=== PATIENT | female | born 1970 | race Caucasian/White ===

== ENCOUNTER 2016-12-12 00:46 | Emergency (ER) | payer BC ==
--- NOTE | 2016-12-12 01:10 | EDM.PDOC ---
ED HPI GENERAL MEDICAL PROBLEM - General Stated Complaint: KNEE PAIN Time Seen by Provider: 12/12/16 01:08 - History of Present Illness INITIAL COMMENTS - FREE TEXT/NARRATIVE: HISTORY AND PHYSICAL: History of present illness: Patient 45-year-old female with history of degenerative joint disease and diabetes she has chronic knee pain and was recently seen in orthopedic clinic and had bilateral cortisone injections she comes in now with pain of her knees bilaterally she denies fever chills nausea vomiting erythema. She'll be traveling back to [place] was concerned about pain medication Review of systems: As per history of present illness and below otherwise all systems reviewed and negative. Past medical history: As per history of present illness and as reviewed below otherwise noncontributory. Surgical history: As per history of present illness and as reviewed below otherwise noncontributory. Social history: No reported history of drug or alcohol abuse. Family history: As per history of present illness and as reviewed below otherwise noncontributory. Physical exam: HEENT: Atraumatic, normocephalic, pupils reactive, negative for conjunctival pallor or scleral icterus, mucous membranes moist, throat clear, neck supple, nontender, trachea midline. Lungs: Clear to auscultation, breath sounds equal bilaterally, chest nontender. Heart: S1S2, regular, negative for clicks, rubs, or JVD. Abdomen: Soft, nondistended, nontender. Negative for masses or hepatosplenomegaly. Negative for costovertebral tenderness. Pelvis: Stable nontender. Genitourinary: Deferred. Rectal: Deferred. Extremities: Both knees are slightly limited range of motion secondary to pain is now crepitation or point tenderness is no erythema or warmth Neuro: Awake, alert, oriented. Cranial nerves II through XII unremarkable. Cerebellum unremarkable. Motor and sensory unremarkable throughout. Exam nonfocal. Diagnostics: Deferred Therapeutics: None Impression: #1 bilateral knee pain secondary to degenerative joint disease Definitive disposition and diagnosis as appropriate pending reevaluation and review of above. - Related Data Allergies Allergy/AdvReac Type Severity Reaction Status Date / Time Penicillins Allergy Severe eye Verified 01/14/16 01:46 swelling Home Meds: Home Meds Levothyroxine [Synthroid] 50 mcg PO ACBREAKFAST 11/21/14 [History] Losartan/Hydrochlorothiazide [Losartan-HCTZ 100-25 MG] 1 each PO DAILY 11/21/14 [History] Pravastatin [Pravachol] 80 mg PO BEDTIME 11/21/14 [History] Cyanocobalamin (Vitamin B-12) [Vitamin B-12] 1 injection IM ASDIRECTED 12/18/14 [History] amLODIPine [Norvasc] 5 mg PO ACBREAKFAST 12/18/14 [History] metFORMIN HCl [Metformin HCl] 1 tab PO BID 01/13/15 [History] Past Medical History Cardiovascular History: Reports: High Cholesterol, Hypertension, [place] Other Cardiovascular History: Recent stress test, report in surgical packet Other Respiratory History: 20 yr history of smoking Other Genitourinary History: "potassium in urine" Other OB/BYN History: tubal ligation Neurological History: Reports: Migraines Psychiatric History: Reports: Anxiety Endocrine/Metabolic History: Reports: Diabetes, Type II Other Dermatologic History: Dry skin, from [place] feeling changes up here, "rashes from time to time" - Infectious Disease History Infectious Disease History: Reports: Chicken Pox - Past Surgical History GI Surgical History: Reports: Appendectomy, Cholecystectomy Other Musculoskeletal Surgeries/Procedures:: hx: Foot surgery Social & Family History - Family History Family Medical History: Noncontributory - Tobacco Use Smoking Status *Q: Former Smoker Years of Tobacco use: 20 Packs/Tins Daily: 4 Used Tobacco, but Quit: Yes Month Tobacco Last Used: February Second Hand Smoke Exposure: No - Caffeine Use Caffeine Use: Reports: Coffee - Recreational Drug Use Recreational Drug Use: No Drug Use in Last 12 Months: No ED ROS GENERAL - Review of Systems Review Of Systems: ROS reveals no pertinent complaints other than HPI. ED EXAM, GENERAL - Physical Exam Exam: See Below (See dictation) Departure - Departure Time of Disposition: 01:10 Disposition: Home, Self-Care 01 Condition: Good Clinical Impression: Degenerative joint disease, Chronic knee pain - Discharge Information Referrals: Dax Antunez MD [Primary Care Provider] - Additional Instructions: The following information is given to patients seen in the emergency department who are being discharged to home. This information is to outline your options for follow-up care. We provide all patients seen in our emergency department with a follow-up referral. The need for follow-up, as well as the timing and circumstances, are variable depending upon the specifics of your emergency department visit. If you don't have a primary care physician on staff, we will provide you with a referral. We always advise you to contact your personal physician following an emergency department visit to inform them of the circumstance of the visit and for follow-up with them and/or the need for any referrals to a consulting specialist. The emergency department will also refer you to a specialist when appropriate. This referral assures that you have the opportunity for followup care with a specialist. All of these measure are taken in an effort to provide you with optimal care, which includes your followup. Under all circumstances we always encourage you to contact your private physician who remains a resource for coordinating your care. When calling for followup care, please make the office aware that this follow-up is from your recent emergency room visit. If for any reason you are refused follow-up, please contact the emergency department at and asked to speak to the emergency department charge nurse. Tramadol as prescribed follow-up primary medical doctor/orthopedics 24-48 hours return as needed as discussed
[2016-12-12 01:35] VITALS: BP 131/71
== END 2016-12-12 01:43 | disposition home or self-care (01) ==
LOC: MW.ED 00:46
DX: M17.0 Bilateral primary osteoarthritis of knee (principal); E11.9 Type 2 diabetes mellitus without complications; I10 Essential (primary) hypertension; Z88.0 Allergy status to penicillin; Z79.84 Long term (current) use of oral hypoglycemic drugs; Z79.899 Other long term (current) drug therapy; Z87.891 Personal history of nicotine dependence
CPT/HCPCS: 99282; 99283

== ENCOUNTER 2017-01-09 14:30 | Emergency (ER) | payer BC ==
[2017-01-09] MEDS ORDERED: Ketorolac 60 MG/2 ML SDV IM ONE (14:39)
--- NOTE | 2017-01-09 14:40 | EDM.PDOC ---
ED HPI GENERAL MEDICAL PROBLEM - General Chief Complaint: Back Pain or Injury Stated Complaint: BACK PAIN Time Seen by Provider: 01/09/17 14:39 Source of Information: Reports: Patient - History of Present Illness INITIAL COMMENTS - FREE TEXT/NARRATIVE: HISTORY AND PHYSICAL: History of present illness: [Patient with history of low back pain presents with low back pain rates 8 out of 10 nonradiating radiculopathy or claudication no bowel or urine symptoms no footdrop rattle saddle anesthesia No fever nausea vomiting chills sweats no chest pain shortness breath headache dizziness palpitation no bowel or urine symptoms Patient repositions to get on and off the exam table in a couple of times, but moving fairly well ] Previous history of hysterectomy Review of systems: As per history of present illness and below otherwise all systems reviewed and negative. Past medical history: As per history of present illness and as reviewed below otherwise noncontributory. Surgical history: As per history of present illness and as reviewed below otherwise noncontributory. Social history: No reported history of drug or alcohol abuse. Family history: As per history of present illness and as reviewed below otherwise noncontributory. Physical exam: HEENT: Atraumatic, normocephalic, pupils reactive, negative for conjunctival pallor or scleral icterus, mucous membranes moist, throat clear, neck supple, nontender, trachea midline. Lungs: Clear to auscultation, breath sounds equal bilaterally, chest nontender. Heart: S1S2, regular, negative for clicks, rubs, or JVD. Abdomen: Soft, nondistended, nontender. Negative for masses or hepatosplenomegaly. Negative for costovertebral tenderness. Pelvis: Stable nontender. Genitourinary: Deferred. Rectal: Deferred. Extremities: Atraumatic, negative for cords or calf pain. Neurovascular unremarkable. Leg raise 30 without radiculopathy Neuro: Awake, alert, oriented. Cranial nerves II through XII unremarkable. Cerebellum unremarkable. Motor and sensory unremarkable throughout. Exam nonfocal. Footdrop or saddle anesthesia Musculoskeletal paraspinous muscle spasm left greater than right lumbar Diagnostics: []Lumbar spine UA Therapeutics: []Toradol 60 IM Cataflam Flexeril Impression: []Low back pain Definitive disposition and diagnosis as appropriate pending reevaluation and review of above. back Pain Score (Numeric/FACES): 10 - Related Data Allergies Allergy/AdvReac Type Severity Reaction Status Date / Time Penicillins Allergy Severe eye Verified 01/09/17 14:42 swelling Home Meds: Home Meds Levothyroxine [Synthroid] 50 mcg PO ACBREAKFAST 11/21/14 [History] Losartan/Hydrochlorothiazide [Losartan-HCTZ 100-25 MG] 1 each PO DAILY 11/21/14 [History] Pravastatin [Pravachol] 80 mg PO BEDTIME 11/21/14 [History] Cyanocobalamin (Vitamin B-12) [Vitamin B-12] 1 injection IM ASDIRECTED 12/18/14 [History] amLODIPine [Norvasc] 5 mg PO ACBREAKFAST 12/18/14 [History] metFORMIN HCl [Metformin HCl] 1 tab PO BID 01/13/15 [History] Past Medical History Cardiovascular History: Reports: High Cholesterol, Hypertension, [place] Other Cardiovascular History: Recent stress test, report in surgical packet Other Respiratory History: 20 yr history of smoking Other Genitourinary History: "potassium in urine" Other OB/BYN History: tubal ligation Neurological History: Reports: Migraines Psychiatric History: Reports: Anxiety Endocrine/Metabolic History: Reports: Diabetes, Type II Other Dermatologic History: Dry skin, from [place] feeling changes up here, "rashes from time to time" - Infectious Disease History Infectious Disease History: Reports: Chicken Pox - Past Surgical History GI Surgical History: Reports: Appendectomy, Cholecystectomy Other Musculoskeletal Surgeries/Procedures:: hx: Foot surgery Social & Family History - Family History Family Medical History: Noncontributory - Tobacco Use Smoking Status *Q: Current Some Day Smoker Years of Tobacco use: 0 Packs/Tins Daily: 0.3 Used Tobacco, but Quit: Yes Month Tobacco Last Used: February Second Hand Smoke Exposure: No - Caffeine Use Caffeine Use: Reports: Coffee - Recreational Drug Use Recreational Drug Use: No Drug Use in Last 12 Months: No ED ROS GENERAL - Review of Systems Review Of Systems: ROS reveals no pertinent complaints other than HPI. ED EXAM, GENERAL - Physical Exam Exam: See Below Course - Vital Signs Last Recorded V/S: Last Vital Signs Temp 98.0 F 01/09/17 14:45 Pulse 81 01/09/17 14:45 Resp 18 01/09/17 14:45 BP 146/84 H 01/09/17 14:45 Pulse Ox 98 01/09/17 14:45 - Orders/Labs/Meds Orders: Active Orders 24 hr Category Date Time Status Lumbar Spine 2 or 3V [CR] Stat Exams 01/09/17 14:37 Taken Labs: Laboratory Tests 01/09/17 Range/Units 15:02 Urine Color YELLOW Urine Appearance CLEAR Urine pH 6.0 (5.0-8.0) Ur Specific [place] 1.020 (1.001-1.035) Urine Protein NEGATIVE (NEGATIVE) mg/dL Urine Glucose (UA) 500 H (NEGATIVE) mg/dL Urine Ketones NEGATIVE (NEGATIVE) mg/dL Urine Occult Blood SMALL H (NEGATIVE) Urine Nitrite NEGATIVE (NEGATIVE) Urine Bilirubin NEGATIVE (NEGATIVE) Urine Urobilinogen 0.2 (<2.0) EU/dL Ur Leukocyte Esterase NEGATIVE (NEGATIVE) Urine RBC 0-2 (0-2/HPF) Urine WBC 2-4 (0-5/HPF) Ur Epithelial Cells FEW (NONE-FEW) Urine Bacteria FEW (NEGATIVE) Urine Mucus LIGHT (NONE-MOD) Meds: Medications Discontinued Medications Generic Name Dose Route Start Last Admin Trade Name Mary Jane PRN Reason Stop Dose Admin Ketorolac Tromethamine 60 mg 01/09/17 14:39 01/09/17 15:06 Toradol IM 01/09/17 14:40 60 mg ONETIME ONE Administration Departure - Departure Time of Disposition: 16:01 Disposition: Home, Self-Care 01 Condition: Good Clinical Impression: Spasm of lumbar paraspinous muscle - Discharge Information Referrals: Dax Antunez MD [Primary Care Provider] - Forms: ED Department Discharge Additional Instructions: Medication as prescribed Return if symptoms persist or worsen Follow-up with primary care in 2 weeks The following information is given to patients seen in the emergency department who are being discharged to home. This information is to outline your options for follow-up care. We provide all patients seen in our emergency department with a follow-up referral. The need for follow-up, as well as the timing and circumstances, are variable depending upon the specifics of your emergency department visit. If you don't have a primary care physician on staff, we will provide you with a referral. We always advise you to contact your personal physician following an emergency department visit to inform them of the circumstance of the visit and for follow-up with them and/or the need for any referrals to a consulting specialist. The emergency department will also refer you to a specialist when appropriate. This referral assures that you have the opportunity for follow-up care with a specialist. All of these measure are taken in an effort to provide you with optimal care, which includes your follow-up. Under all circumstances we always encourage you to contact your private physician who remains a resource for coordinating your care. When calling for follow-up care, please make the office aware that this follow-up is from your recent emergency room visit. If for any reason you are refused follow-up, please contact the [facility] emergency department at and asked to speak to the emergency department charge nurse. - My Orders Last 24 Hours: My Active Orders 01/09/17 14:37 Lumbar Spine 2 or 3V [CR] Stat - Assessment/Plan Last 24 Hours: My Active Orders 01/09/17 14:37 Lumbar Spine 2 or 3V [CR] Stat
[2017-01-09 14:47] VITALS: BP 146/84
--- NOTE | 2017-01-10 16:07 | CR ---
EXAM DATE: 01/09/17 PATIENT'S AGE: 46 Patient: SILVIA CHEATHAM Facility: [place], [place] Site . Site : 1970 Study: XRay Spine Lumbar -01/09/2017 3:35:34 PM Ordering Physician: Carolynn Galindo Final Report: INDICATION: Pain. Technique: Three views lumbar spine. Findings: No acute fracture or subluxation in lumbar spine. Mild mid and lower lumbar facet arthropathy. Mild atherosclerotic calcification in the aorta. Surgical clips right mid to upper abdomen. Linear lucency coursing through the upper right iliac bone is difficult to characterize on these images. This be correlated to dedicated views of the pelvis. Minimal degenerative change throughout the lumbar spine. Remainder negative. Dictated by Samir Brasher MD @ Jan 09 2017 3:55PM (Electronic Signature) Report Signed by Proxy. CHERI
== END 2017-01-09 16:16 | disposition home or self-care (01) ==
LOC: MW.ED 14:30
DX: M62.830 Muscle spasm of back (principal); E11.9 Type 2 diabetes mellitus without complications; I10 Essential (primary) hypertension; F17.210 Nicotine dependence, cigarettes, uncomplicated; Z88.0 Allergy status to penicillin; Z79.84 Long term (current) use of oral hypoglycemic drugs; Z79.899 Other long term (current) drug therapy
CPT/HCPCS: 72100; 81001; 96372; 99283; J1885; 99284

== ENCOUNTER 2017-02-20 16:12 | Emergency (ER) | payer BC, OTHER ==
[2017-02-20] MEDS ORDERED: Ondansetron 4 MG/2 ML SDV IVPUSH ONE (16:47)
[2017-02-20] MEDS ORDERED: Sodium Chloride 0.9% 1,000 ML IV ONE (16:47)
[2017-02-20] MEDS ORDERED: Albuterol/Ipratropium 3.0-0.5 MG/3 ML Neb Soln NEB ONE (17:27)
--- NOTE | 2017-02-20 17:44 | EDM.PDOC ---
ED HPI GENERAL MEDICAL PROBLEM - General Chief Complaint: General Stated Complaint: DIZZINESS, NOT FEELING WELL Time Seen by Provider: 02/20/17 17:20 Source of Information: Reports: Patient History Limitations: Reports: No Limitations - History of Present Illness INITIAL COMMENTS - FREE TEXT/NARRATIVE: History of present illness: 46 year old female comes in complaining of congestion, abdominal complaints as well as generalized feelings of being unwell. Patient is a diabetic as well as struggles with hypertension. Review of systems: As per history of present illness and below otherwise all systems reviewed and negative. Past medical history: As per history of present illness and as reviewed below otherwise noncontributory. Surgical history: As per history of present illness and as reviewed below otherwise noncontributory. Social history: No reported history of drug or alcohol abuse. Family history: As per history of present illness and as reviewed below otherwise noncontributory. Physical exam: HEENT: Atraumatic, normocephalic, pupils reactive, negative for conjunctival pallor or scleral icterus, mucous membranes moist, throat clear, neck supple, nontender, trachea midline. Lungs: Clear to auscultation, breath sounds equal bilaterally, chest nontender. Heart: S1S2, regular, negative for clicks, rubs, or JVD. Abdomen: Soft, nondistended, nontender. Negative for masses or hepatosplenomegaly. Negative for costovertebral tenderness. Pelvis: Stable nontender. Genitourinary: Deferred. Rectal: Deferred. Extremities: Atraumatic, negative for cords or calf pain. Neurovascular unremarkable. Neuro: Awake, alert, oriented. Cranial nerves II through XII unremarkable. Cerebellum unremarkable. Motor and sensory unremarkable throughout. Exam nonfocal. Diagnostics: [CBC, CMP, influenza AB] Therapeutics: [DuoNeb, normal saline] Impression: [#1 hyperglycemia #2 viral syndrome] Plan: [Count carbs, control intake, clear fluids] Definitive disposition and diagnosis as appropriate pending reevaluation and review of above. abdominal pain Pain Score (Numeric/FACES): 7 - Related Data Allergies Allergy/AdvReac Type Severity Reaction Status Date / Time Penicillins Allergy Severe eye Verified 02/20/17 16:24 swelling Home Meds: Home Meds Levothyroxine [Synthroid] 50 mcg PO ACBREAKFAST 11/21/14 [History] Losartan/Hydrochlorothiazide [Losartan-HCTZ 100-25 MG] 1 each PO DAILY 11/21/14 [History] Pravastatin [Pravachol] 80 mg PO BEDTIME 11/21/14 [History] Cyanocobalamin (Vitamin B-12) [Vitamin B-12] 1 injection IM ASDIRECTED 12/18/14 [History] amLODIPine [Norvasc] 5 mg PO ACBREAKFAST 12/18/14 [History] metFORMIN HCl [Metformin HCl] 1 tab PO BID 01/13/15 [History] Canagliflozin [Invokana] 1 tab PO DAILY 02/20/17 [History] Past Medical History Cardiovascular History: Reports: High Cholesterol, Hypertension, [place] Other Cardiovascular History: Recent stress test, report in surgical packet Other Respiratory History: 20 yr history of smoking Other Genitourinary History: "potassium in urine" Other OB/BYN History: tubal ligation Neurological History: Reports: Migraines Psychiatric History: Reports: Anxiety Endocrine/Metabolic History: Reports: Diabetes, Type II, Hypothyroidism Other Dermatologic History: Dry skin, from [place] feeling changes up here, "rashes from time to time" - Infectious Disease History Infectious Disease History: Reports: Chicken Pox - Past Surgical History GI Surgical History: Reports: Appendectomy, Cholecystectomy, Other (See Below) Other GI Surgeries/Procedures: "polyps in stomach" Other Musculoskeletal Surgeries/Procedures:: hx: Foot surgery Social & Family History - Family History Family Medical History: Noncontributory - Tobacco Use Smoking Status *Q: Former Smoker Years of Tobacco use: 0 Packs/Tins Daily: 0.3 Used Tobacco, but Quit: Yes Month Tobacco Last Used: 1 year Second Hand Smoke Exposure: No - Caffeine Use Caffeine Use: Reports: Coffee, Soda - Recreational Drug Use Recreational Drug Use: No Drug Use in Last 12 Months: No ED ROS GENERAL - Review of Systems Review Of Systems: See Below (See history of present illness) ED EXAM, GENERAL - Physical Exam Exam: See Below (See history of present illness) Course - Vital Signs Last Recorded V/S: Last Vital Signs Temp 36.5 C 02/20/17 16:24 Pulse 116 H 02/20/17 16:24 Resp 16 02/20/17 16:24 BP 115/58 L 02/20/17 16:24 Pulse Ox 96 02/20/17 16:24 - Orders/Labs/Meds Orders: Active Orders 24 hr Category Date Time Status RT Aerosol Therapy [RC] ASDIRECTED Care 02/20/17 17:27 Ordered Sodium Chloride 0.9% [Normal Saline] 1,000 ml Med 02/20/17 16:47 Active IV STAT Medication Orders Sodium Chloride (Normal Saline) 1,000 mls @ 999 mls/hr IV STAT ONE Stop: 02/20/17 17:47 Labs: Laboratory Tests 02/20/17 02/20/17 Range/Units 16:52 16:52 WBC 10.86 (4.0-11.0) K/uL RBC 4.38 (4.30-5.90) M/uL Hgb 13.9 (12.0-16.0) g/dL Hct 39.8 (36.0-46.0) % MCV 90.9 (80.0-98.0) fL MCH 31.7 (27.0-32.0) pg MCHC 34.9 (31.0-37.0) g/dL RDW Std Deviation 44.3 (28.0-62.0) fl RDW Coeff of Claudio 14 (11.0-15.0) % Plt Count 335 (150-400) K/uL MPV 10.30 (7.40-12.00) fL Add Manual Diff YES Neutrophils % (Manual) 58 (48.0-80.0) % Band Neutrophils % 3 % Lymphocytes % (Manual) 32 (16.0-40.0) % Monocytes % (Manual) 5 (0.0-15.0) % Basophils % (Manual) 1 (0.0-1.5) % Metamyelocytes % 1 % Nucleated RBC % 0.0 /100WBC Absolute Seg Neuts 6.3 H (1.4-5.7) Band Neutrophils # 0.3 Lymphocytes # (Manual) 3.5 H (0.6-2.4) Monocytes # (Manual) 0.5 (0.0-0.8) Basophils # (Manual) 0.1 (0.0-0.1) Absolute Metamyelocyte 0.1 Nucleated RBCs # 0 K/uL Sodium 129 L (136-146) mmol/L Potassium 3.2 L (3.5-5.1) mmol/L Chloride 94 L (98-110) mmol/L Carbon Dioxide 15 L (21-31) mmol/L BUN 20 (6.0-23.0) mg/dL Creatinine 1.4 (0.6-1.5) mg/dL Est Cr Clr Drug Dosing 43.36 mL/min Estimated GFR (MDRD) 40.5 ml/min Glucose 517 H* (60-110) mg/dL Calcium 9.2 (8.8-10.8) mg/dL Total Bilirubin 0.7 (0.1-1.5) mg/dL AST 14 (5-40) IU/L ALT 24 (8-54) IU/L Alkaline Phosphatase 45 (40-150) Total Protein 7.4 (6.0-8.0) g/dL Albumin 4.0 (3.5-5.0) g/dL Globulin 3.4 (2.0-3.5) g/dL Albumin/Globulin Ratio 1.2 L (1.3-2.8) Amylase 12 (10-90) U/L Lipase 11 (7-80) U/L Meds: Medications Generic Name Dose Route Start Last Admin Trade Name Freq PRN Reason Stop Dose Admin Sodium Chloride 1,000 mls @ 999 mls/hr 02/20/17 16:47 Normal Saline IV 02/20/17 17:47 STAT ONE Discontinued Medications Generic Name Dose Route Start Last Admin Trade Name Freq PRN Reason Stop Dose Admin Albuterol/Ipratropium 3 ml 02/20/17 17:27 02/20/17 17:37 Duoneb 3.0-0.5 Mg/3 Ml NEB 02/20/17 17:28 3 ml ONETIME ONE Administration Ondansetron HCl 4 mg 02/20/17 16:47 Zofran IVPUSH 02/20/17 16:48 ONETIME ONE Departure - Departure Time of Disposition: 17:43 Disposition: Home, Self-Care 01 Condition: Good Clinical Impression: Hyperglycemia, Viral syndrome - Discharge Information Referrals: PCP,None [Primary Care Provider] - Additional Instructions: The following information is given to patients seen in the emergency department who are being discharged to home. This information is to outline your options for follow-up care. We provide all patients seen in our emergency department with a follow-up referral. The need for follow-up, as well as the timing and circumstances, are variable depending upon the specifics of your emergency department visit. If you don't have a primary care physician on staff, we will provide you with a referral. We always advise you to contact your personal physician following an emergency department visit to inform them of the circumstance of the visit and for follow-up with them and/or the need for any referrals to a consulting specialist. The emergency department will also refer you to a specialist when appropriate. This referral assures that you have the opportunity for follow-up care with a specialist. All of these measure are taken in an effort to provide you with optimal care, which includes your follow-up. Under all circumstances we always encourage you to contact your private physician who remains a resource for coordinating your care. When calling for follow-up care, please make the office aware that this follow-up is from your recent emergency room visit. If for any reason you are refused follow-up, please contact the [facility] Emergency Department at and asked to speak to the emergency department charge nurse. Take medication as directed Follow-up with PCP in 2-3 days Return to ED as needed as discussed - My Orders Last 24 Hours: My Active Orders 02/20/17 16:47 Sodium Chloride 0.9% [Normal Saline] 1,000 ml IV STAT 02/20/17 17:27 RT Aerosol Therapy [RC] ASDIRECTED - Assessment/Plan Last 24 Hours: My Active Orders 02/20/17 16:47 Sodium Chloride 0.9% [Normal Saline] 1,000 ml IV STAT 02/20/17 17:27 RT Aerosol Therapy [RC] ASDIRECTED
[2017-02-20 18:56] VITALS: BP 110/68
== END 2017-02-20 18:47 | disposition home or self-care (01) ==
LOC: MW.ED 16:12
DX: E11.65 Type 2 diabetes mellitus with hyperglycemia (principal); B34.9 Viral infection, unspecified; I10 Essential (primary) hypertension; Z88.0 Allergy status to penicillin; Z79.899 Other long term (current) drug therapy; Z87.891 Personal history of nicotine dependence; Z79.84 Long term (current) use of oral hypoglycemic drugs
CPT/HCPCS: 36415; 80053; 82150; 83690; 85025; 94640; 96361; 96374; 99284; J2405; J7040; 99283

== ENCOUNTER 2017-04-16 08:03 | Emergency (ER) | payer BC, OTHER ==
[2017-04-16] MEDS ORDERED: Acetaminophen/HYDROcodone 325-10 MG Tab PO ONE (08:26)
[2017-04-16] MEDS ORDERED: Ketorolac 60 MG/2 ML SDV IM ONE (08:26)
[2017-04-16] MEDS ORDERED: Acetaminophen/HYDROcodone 325-5 MG Tab ONE (08:31)
--- NOTE | 2017-04-16 08:34 | EDM.PDOC ---
ED HPI GENERAL MEDICAL PROBLEM - General Chief Complaint: Lower Extremity Injury/Pain Stated Complaint: FALL Time Seen by Provider: 04/16/17 08:26 - History of Present Illness INITIAL COMMENTS - FREE TEXT/NARRATIVE: HISTORY AND PHYSICAL: History of present illness: Patient is 46-year-old female presents with concern of left hip injury that occurred last night when she was bowling she been ambulatory since she denies any associated head or neck pain or trauma or other concern this occurred with fall while she was bowling Review of systems: As per history of present illness and below otherwise all systems reviewed and negative. Past medical history: As per history of present illness and as reviewed below otherwise noncontributory. Surgical history: As per history of present illness and as reviewed below otherwise noncontributory. Social history: No reported history of drug or alcohol abuse. Family history: As per history of present illness and as reviewed below otherwise noncontributory. Physical exam: HEENT: Atraumatic, normocephalic, pupils reactive, negative for conjunctival pallor or scleral icterus, mucous membranes moist, throat clear, neck supple, nontender, trachea midline. Lungs: Clear to auscultation, breath sounds equal bilaterally, chest nontender. Heart: S1S2, regular, negative for clicks, rubs, or JVD. Abdomen: Soft, nondistended, nontender. Negative for masses or hepatosplenomegaly. Negative for costovertebral tenderness. Pelvis: Stable nontender. No shortening no gross deformity no crepitation or point tenderness limited range of motion secondary to pain upper left Genitourinary: Deferred. Rectal: Deferred. Extremities: Atraumatic, negative for cords or calf pain. Neurovascular unremarkable. Neuro: Awake, alert, oriented. Cranial nerves II through XII unremarkable. Cerebellum unremarkable. Motor and sensory unremarkable throughout. Exam nonfocal. Diagnostics: X-ray left hip with pelvis UA urine drug screen Therapeutics: Toradol 60 mg IM Impression: #1 history of fall with left hip injury Definitive disposition and diagnosis as appropriate pending reevaluation and review of above. left hip Pain Score (Numeric/FACES): 11 - Related Data Allergies Allergy/AdvReac Type Severity Reaction Status Date / Time Penicillins Allergy Severe eye Verified 02/20/17 16:24 swelling Home Meds: Home Meds Levothyroxine [Synthroid] 50 mcg PO ACBREAKFAST 11/21/14 [History] Losartan/Hydrochlorothiazide [Losartan-HCTZ 100-25 MG] 1 each PO DAILY 11/21/14 [History] Pravastatin [Pravachol] 80 mg PO BEDTIME 11/21/14 [History] Cyanocobalamin (Vitamin B-12) [Vitamin B-12] 1 injection IM ASDIRECTED 12/18/14 [History] amLODIPine [Norvasc] 5 mg PO ACBREAKFAST 12/18/14 [History] metFORMIN HCl [Metformin HCl] 1 tab PO BID 01/13/15 [History] Canagliflozin [Invokana] 1 tab PO DAILY 02/20/17 [History] Past Medical History Cardiovascular History: Reports: High Cholesterol, Hypertension, [place] Other Cardiovascular History: Recent stress test, report in surgical packet Other Respiratory History: 20 yr history of smoking Other Genitourinary History: "potassium in urine" Other OB/BYN History: tubal ligation Neurological History: Reports: Migraines Psychiatric History: Reports: Anxiety Endocrine/Metabolic History: Reports: Diabetes, Type II, Hypothyroidism Other Dermatologic History: Dry skin, from [place] feeling changes up here, "rashes from time to time" - Infectious Disease History Infectious Disease History: Reports: Chicken Pox - Past Surgical History GI Surgical History: Reports: Appendectomy, Cholecystectomy, Other (See Below) Other GI Surgeries/Procedures: "polyps in stomach" Other Musculoskeletal Surgeries/Procedures:: hx: Foot surgery Social & Family History - Family History Family Medical History: Noncontributory - Tobacco Use Smoking Status *Q: Former Smoker Years of Tobacco use: 0 Packs/Tins Daily: 0.3 Used Tobacco, but Quit: Yes Month Tobacco Last Used: 1 year Second Hand Smoke Exposure: No - Caffeine Use Caffeine Use: Reports: Coffee, Soda - Recreational Drug Use Recreational Drug Use: No Drug Use in Last 12 Months: No Review of Systems - Review of Systems Review Of Systems: ROS reveals no pertinent complaints other than HPI. ED EXAM, GENERAL - Physical Exam Exam: See Below (See dictation) Course - Vital Signs Last Recorded V/S: Last Vital Signs Temp 36.8 C 04/16/17 08:23 Pulse 99 04/16/17 08:23 Resp 20 04/16/17 08:23 BP 176/96 H 04/16/17 09:04 Pulse Ox 98 04/16/17 08:23 - Orders/Labs/Meds Orders: Active Orders 24 hr Category Date Time Status Hip Min 2V or 3V w Pelvis Lt [CR] Stat Exams 04/16/17 08:26 Taken Labs: Laboratory Tests 04/16/17 04/16/17 Range/Units 08:37 08:37 Urine Color YELLOW Urine Appearance CLEAR Urine pH 5.0 (5.0-8.0) Ur Specific [place] 1.015 (1.001-1.035) Urine Protein NEGATIVE (NEGATIVE) mg/dL Urine Glucose (UA) >=1000 (NEGATIVE) mg/dL Urine Ketones NEGATIVE (NEGATIVE) mg/dL Urine Occult Blood NEGATIVE (NEGATIVE) Urine Nitrite NEGATIVE (NEGATIVE) Urine Bilirubin NEGATIVE (NEGATIVE) Urine Urobilinogen 0.2 (<2.0) EU/dL Ur Leukocyte Esterase NEGATIVE (NEGATIVE) Urine RBC NONE SEEN (0-2/HPF) Urine WBC 0-1 (0-5/HPF) Ur Epithelial Cells FEW (NONE-FEW) Urine Bacteria FEW (NEGATIVE) Urine Opiates Screen NEGATIVE (NEGATIVE) Ur Oxycodone Screen NEGATIVE (NEGATIVE) Urine Methadone Screen NEGATIVE (NEGATIVE) Ur Barbiturates Screen NEGATIVE (NEGATIVE) Ur Phencyclidine Scrn NEGATIVE (NEGATIVE) Ur Amphetamine Screen NEGATIVE (NEGATIVE) U Methamphetamines Scrn NEGATIVE (NEGATIVE) U Benzodiazepines Scrn NEGATIVE (NEGATIVE) U Cocaine Metab Screen NEGATIVE (NEGATIVE) U Marijuana (THC) Screen NEGATIVE (NEGATIVE) Meds: Medications Discontinued Medications Generic Name Dose Route Start Last Admin Trade Name Freq PRN Reason Stop Dose Admin Hydrocodone Bitart/Acetaminophen 1 tab 04/16/17 08:26 04/16/17 08:37 [facility] 325-10 Mg PO 04/16/17 08:27 Not Given ONETIME ONE Hydrocodone Bitart/Acetaminophen Confirm 04/16/17 08:31 04/16/17 09:06 [facility] 325-5 Mg Administered 04/16/17 08:32 2 tab Dose Administration 2 tab .ROUTE .STK-MED ONE Ketorolac Tromethamine 60 mg 04/16/17 08:26 04/16/17 08:34 Toradol IM 04/16/17 08:27 60 mg ONETIME ONE Administration Departure - Departure Time of Disposition: 10:20 Disposition: Home, Self-Care 01 Condition: Good Clinical Impression: Hip injury - Discharge Information Referrals: PCP,None [Primary Care Provider] - Forms: ED Department Discharge Additional Instructions: The following information is given to patients seen in the emergency department who are being discharged to home. This information is to outline your options for follow-up care. We provide all patients seen in our emergency department with a follow-up referral. The need for follow-up, as well as the timing and circumstances, are variable depending upon the specifics of your emergency department visit. If you don't have a primary care physician on staff, we will provide you with a referral. We always advise you to contact your personal physician following an emergency department visit to inform them of the circumstance of the visit and for follow-up with them and/or the need for any referrals to a consulting specialist. The emergency department will also refer you to a specialist when appropriate. This referral assures that you have the opportunity for followup care with a specialist. All of these measure are taken in an effort to provide you with optimal care, which includes your followup. Under all circumstances we always encourage you to contact your private physician who remains a resource for coordinating your care. When calling for followup care, please make the office aware that this follow-up is from your recent emergency room visit. If for any reason you are refused follow-up, please contact the [facility] emergency department at and asked to speak to the emergency department charge nurse. Follow-up primary medical doctor return as needed as discussed Ultram as prescribed - My Orders Last 24 Hours: My Active Orders 04/16/17 08:26 Hip Min 2V or 3V w Pelvis Lt [CR] Stat - Assessment/Plan Last 24 Hours: My Active Orders 04/16/17 08:26 Hip Min 2V or 3V w Pelvis Lt [CR] Stat
[2017-04-16 10:47] VITALS: BP 169/110
--- NOTE | 2017-04-18 09:19 | CR ---
EXAM DATE: 04/16/17 PATIENT'S AGE: 46 Patient: SILVIA CHEATHAM Facility: [place], [place] : 1970 Study: XRay Pelvis Left HIP [id number]/24/2018 9:02:40 AM Ordering Physician: Una Madsen Final Report: HISTORY: Fall on ice left hip pain AP pelvis left hip views. Findings : Normal alignment. No acute fractures seen. No dislocation. Bony pelvis appears intact. Some areas of increased density superior to the left greater trochanter of uncertain chronicity. Could represent sequela of prior avulsion injury however age indeterminate. Dictated by Liza Greenwood MD @ Apr 16 2017 9:36AM (Electronic Signature) Report Signed by Proxy. CHERI
== END 2017-04-16 10:42 | disposition home or self-care (01) ==
LOC: MW.ED 08:03
DX: S79.912A Unspecified injury of left hip, initial encounter (principal); I10 Essential (primary) hypertension; E78.00 Pure hypercholesterolemia, unspecified; E11.9 Type 2 diabetes mellitus without complications; E03.9 Hypothyroidism, unspecified; Z87.891 Personal history of nicotine dependence; Z79.84 Long term (current) use of oral hypoglycemic drugs; Z79.899 Other long term (current) drug therapy; Z88.0 Allergy status to penicillin; W19.XXXA Unspecified fall, initial encounter; Y93.54 Activity, bowling
CPT/HCPCS: 73502; 80305; 81001; 96372; 99284; A9270; J1885; 99283

== ENCOUNTER 2017-06-26 00:49 | Emergency (ER) | payer BC ==
--- NOTE | 2017-06-26 01:06 | EDM.PDOC ---
ED HPI GENERAL MEDICAL PROBLEM - General Chief Complaint: Lower Extremity Injury/Pain Stated Complaint: SWELLINIG IN BOTH LEGS Time Seen by Provider: 06/26/17 01:03 - History of Present Illness INITIAL COMMENTS - FREE TEXT/NARRATIVE: HISTORY AND PHYSICAL: History of present illness: Patient's 46 show female with history of diabetes or thyroid disease sensory concern of inferior extremity edema she states is been over the last several days she denies shortness of breath chest pain nausea vomiting fever chills or other concern she has an appointment with her doctor on the . Review of systems: As per history of present illness and below otherwise all systems reviewed and negative. Past medical history: As per history of present illness and as reviewed below otherwise noncontributory. Surgical history: As per history of present illness and as reviewed below otherwise noncontributory. Social history: No reported history of drug or alcohol abuse. Family history: As per history of present illness and as reviewed below otherwise noncontributory. Physical exam: HEENT: Atraumatic, normocephalic, pupils reactive, negative for conjunctival pallor or scleral icterus, mucous membranes moist, throat clear, neck supple, nontender, trachea midline. Lungs: Clear to auscultation, breath sounds equal bilaterally, chest nontender. Heart: S1S2, regular, negative for clicks, rubs, or JVD. Abdomen: Soft, nondistended, nontender. Negative for masses or hepatosplenomegaly. Negative for costovertebral tenderness. Pelvis: Stable nontender. Genitourinary: Deferred. Rectal: Deferred. Extremities: Atraumatic, negative for cords or calf pain. Neurovascular unremarkable. 1-2+ peripheral edema inferior extremities noted Neuro: Awake, alert, oriented. Cranial nerves II through XII unremarkable. Cerebellum unremarkable. Motor and sensory unremarkable throughout. Exam nonfocal. Diagnostics: CBC CMP BNP chest x-ray EKG UA Therapeutics: None Impression: # 1 peripheral edema #2 history of diabetes Definitive disposition and diagnosis as appropriate pending reevaluation and review of above. - Related Data Allergies Allergy/AdvReac Type Severity Reaction Status Date / Time Penicillins Allergy Severe eye Verified 06/26/17 01:00 swelling Home Meds: Home Meds Levothyroxine [Synthroid] 50 mcg PO ACBREAKFAST 11/21/14 [History] Losartan/Hydrochlorothiazide [Losartan-HCTZ 100-25 MG] 1 each PO DAILY 11/21/14 [History] Pravastatin [Pravachol] 80 mg PO BEDTIME 11/21/14 [History] Cyanocobalamin (Vitamin B-12) [Vitamin B-12] 1 injection IM ASDIRECTED 12/18/14 [History] amLODIPine [Norvasc] 5 mg PO ACBREAKFAST 12/18/14 [History] metFORMIN HCl [Metformin HCl] 1 tab PO BID 01/13/15 [History] Canagliflozin [Invokana] 1 tab PO DAILY 02/20/17 [History] Past Medical History Cardiovascular History: Reports: High Cholesterol, Hypertension, [place] Other Cardiovascular History: Recent stress test, report in surgical packet Other Respiratory History: 20 yr history of smoking Other Genitourinary History: "potassium in urine" Other OB/BYN History: tubal ligation Neurological History: Reports: Migraines Psychiatric History: Reports: Anxiety Endocrine/Metabolic History: Reports: Diabetes, Type II, Hypothyroidism Hematologic History: Reports: None Immunologic History: Reports: None Oncologic (Cancer) History: Reports: None Other Dermatologic History: Dry skin, from [place] feeling changes up here, "rashes from time to time" - Infectious Disease History Infectious Disease History: Reports: Chicken Pox - Past Surgical History GI Surgical History: Reports: Appendectomy, Cholecystectomy, Other (See Below) Other GI Surgeries/Procedures: "polyps in stomach" Other Musculoskeletal Surgeries/Procedures:: hx: Foot surgery, hand surgery Social & Family History - Family History Family Medical History: Noncontributory - Tobacco Use Smoking Status *Q: Former Smoker Years of Tobacco use: 0 Packs/Tins Daily: 0.3 Used Tobacco, but Quit: Yes Month/Year Tobacco Last Used: 1 year Second Hand Smoke Exposure: No - Caffeine Use Caffeine Use: Reports: Coffee, Soda - Recreational Drug Use Recreational Drug Use: No Drug Use in Last 12 Months: No Review of Systems - Review of Systems Review Of Systems: ROS reveals no pertinent complaints other than HPI. ED EXAM, GENERAL - Physical Exam Exam: See Below (See dictation) Course - Vital Signs Last Recorded V/S: Last Vital Signs Temp 36.4 C 06/26/17 00:49 Pulse 84 06/26/17 00:49 Resp 18 06/26/17 00:49 BP 131/80 06/26/17 00:49 Pulse Ox 98 06/26/17 00:49 Departure - Departure Time of Disposition: :06 Disposition: Home, Self-Care 01 Condition: Good Clinical Impression: Peripheral edema - Discharge Information Referrals: PCP,None [Primary Care Provider] - Additional Instructions: The following information is given to patients seen in the emergency department who are being discharged to home. This information is to outline your options for follow-up care. We provide all patients seen in our emergency department with a follow-up referral. The need for follow-up, as well as the timing and circumstances, are variable depending upon the specifics of your emergency department visit. If you don't have a primary care physician on staff, we will provide you with a referral. We always advise you to contact your personal physician following an emergency department visit to inform them of the circumstance of the visit and for follow-up with them and/or the need for any referrals to a consulting specialist. The emergency department will also refer you to a specialist when appropriate. This referral assures that you have the opportunity for followup care with a specialist. All of these measure are taken in an effort to provide you with optimal care, which includes your followup. Under all circumstances we always encourage you to contact your private physician who remains a resource for coordinating your care. When calling for followup care, please make the office aware that this follow-up is from your recent emergency room visit. If for any reason you are refused follow-up, please contact the [facility] emergency department at and asked to speak to the emergency department charge nurse. Continue current medications keep scheduled appointment with private medical doctor return as needed as discussed
[2017-06-26 01:51] LABS: CHLORIDE,CL 103 mmol/L (98-107); SODIUM,NA 137 mmol/L (136-145)
[2017-06-26 02:08] VITALS: BP 144/83
--- NOTE | 2017-06-27 11:24 | CR ---
EXAM DATE: 06/26/17 PATIENT'S AGE: 46 Patient: SILVIA CHEATHAM Facility: [place], [place] Site . Site : 1970 Study: XRay Chest [id number]/6/2018 1:45:32 AM Ordering Physician: Una Madsen Final Report: INDICATION: Bipedal Edema TECHNIQUE: Chest 2 views. COMPARISON: 07/10/15 FINDINGS: Cardiovascular and mediastinum: Heart size and vasculature are normal in caliber and appearance. Mediastinum is within normal limits. Lungs and pleural spaces: Lungs are clear. No sign of infiltrate or mass. No sign of pleural effusion. No pneumothorax. Bones and soft tissues: No significant findings. IMPRESSION: Unremarkable chest. Dictated by: Dante Mays MD @ 06/26/2017 01:55:20 (Electronic Signature) Report Signed by Proxy. CHERI
== END 2017-06-26 02:04 | disposition home or self-care (01) ==
LOC: MW.ED 00:49
DX: R60.0 Localized edema (principal); E11.9 Type 2 diabetes mellitus without complications; E78.00 Pure hypercholesterolemia, unspecified; I10 Essential (primary) hypertension; I25.2 Old myocardial infarction; E03.9 Hypothyroidism, unspecified; Z87.891 Personal history of nicotine dependence; Z88.0 Allergy status to penicillin; Z79.899 Other long term (current) drug therapy; Z79.84 Long term (current) use of oral hypoglycemic drugs
CPT/HCPCS: 36415; 71046; 71046-26; 80053; 81001; 83880; 85025; 93005; 99284-25

== ENCOUNTER 2018-09-11 17:32 | Emergency (ER) | payer MEDICAID ==
[2018-09-11] MEDS ORDERED: Albuterol/Ipratropium 3.0-0.5 MG/3 ML Neb Soln NEB ONE (17:52)
--- NOTE | 2018-09-11 17:53 | EDM.PDOC ---
ED HPI GENERAL MEDICAL PROBLEM - General Chief Complaint: Respiratory Problem Stated Complaint: COUGH Time Seen by Provider: 09/11/18 17:52 Source of Information: Reports: Patient History Limitations: Reports: No Limitations - History of Present Illness INITIAL COMMENTS - FREE TEXT/NARRATIVE: HISTORY AND PHYSICAL: History of present illness: Patient is a 47-year-old female presents to ED with complaint of cough. She states she developed a cough shortly after being discharged 08/27/18 for chest pain r/o. She states while in the hospital she felt like he lungs were filling up with fluid, she was placed on a week worth of lasix. She states she had some improvement with this but reports having some shortness of breath and coughing when lying flat. Denies fevers, chills, nausea, vomiting, abdominal pain, chest pain. She denies history of asthma or COPD, quit smoking less than 1 year ago. Past medical history of HTN and DM. Review of systems: As per history of present illness and below otherwise all systems reviewed and negative. Past medical history: As per history of present illness and as reviewed below otherwise noncontributory. Surgical history: As per history of present illness and as reviewed below otherwise noncontributory. Social history: No reported history of drug or alcohol abuse. Family history: As per history of present illness and as reviewed below otherwise noncontributory. Physical exam: General: Patient sitting comfortably in no acute distress and nontoxic appearing HEENT: Atraumatic, normocephalic, pupils reactive, negative for conjunctival pallor or scleral icterus, mucous membranes moist, throat clear, neck supple, nontender, trachea midline. No meningeal signs. Lungs: Clear to auscultation, breath sounds equal bilaterally, chest nontender. Heart: S1S2, regular, negative for clicks, rubs, or overt murmur. Abdomen: Soft, nondistended, nontender. Negative for masses or hepatosplenomegaly. Negative for costovertebral tenderness. No rigidity, rebound , guarding. Pelvis: Stable nontender. Genitourinary: Deferred. Rectal: Deferred. Extremities: Atraumatic, negative for cords or calf pain. Neurovascular unremarkable. Neuro: Awake, alert, oriented. Cranial nerves II through XII unremarkable. Cerebellum unremarkable. Motor and sensory unremarkable throughout. Exam nonfocal. Notes: Patient reports improvement with DuoNeb Diagnostics: CBC, CMP, UA, CXR Therapeutics: DuoNeb Prescriptions: Medrol dosepak Bactrim Ventolin inhaler Impression: Bronchitis, UTI Plan: Take medication as instructed Follow up with primary care provider Return to ED as needed as discussed Definitive disposition and diagnosis as appropriate pending reevaluation and review of above. - Related Data Allergies Allergy/AdvReac Type Severity Reaction Status Date / Time Penicillins Allergy Severe eye Verified 09/11/18 18:05 swelling latex Allergy Rash Verified 09/11/18 18:05 Home Meds: Home Meds Losartan/Hydrochlorothiazide [Losartan-HCTZ 100-25 MG] 1 tab PO DAILY 11/21/14 [ History] Cyanocobalamin (Vitamin B-12) [Vitamin B-12] 1,500 mcg IM ASDIRECTED PRN [History] metFORMIN HCl [Metformin HCl] 500 mg PO BID 01/13/15 [History] SUMAtriptan [Imitrex] 25 mg PO ASDIRECTED PRN MDD 50 mg 01/10/18 [History] atorvaSTATin [Lipitor] 40 mg PO BEDTIME 01/10/18 [History] Dapagliflozin Propanediol [Farxiga] 10 mg PO DAILY 08/25/18 [History] Furosemide [Lasix] 20 mg PO DAILY #7 tab 08/27/18 [Rx] Insulin Aspart [NovoLOG] See Protocol SUBCUT TIDAC #1 pen 08/27/18 [Rx] Insulin Glarg,Human.Rec.Analog [Lantus Solostar] 12 units SUBCUT BEDTIME #1 pen 08/27/18 [Rx] Albuterol [Ventolin HFA] 1 puff INH Q4H #1 inhaler 09/11/18 [Rx] Albuterol [Ventolin HFA] 1 puff INH Q4H #1 inhaler 09/11/18 [Rx] Sulfamethoxazole/Trimethoprim [Bactrim Ds Tablet] 1 each PO BID 7 Days #14 tablet 09/11/18 [Rx] methylPREDNISolone [Medrol] 4 mg PO ASDIRECTED #1 tab.ds.pk 09/11/18 [Rx] methylPREDNISolone [Medrol] 4 mg PO ASDIRECTED #1 tab.ds.pk 09/11/18 [Rx] Past Medical History HEENT History: Reports: None Cardiovascular History: Reports: High Cholesterol, Hypertension, [place] Other Cardiovascular History: was told she had a "mild" heart attack in 2007- no stents or heart damage Respiratory History: Reports: None Other Respiratory History: 20 yr history of smoking Gastrointestinal History: Reports: None Other Genitourinary History: "potassium in urine" 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 Other BARREL REAMER History: tubal ligation Musculoskeletal History: Neurological History: Reports: Migraines, Other (See Below) Other Neuro History: hx of motion sickness Psychiatric History: Reports: None Endocrine/Metabolic History: Reports: Diabetes, Type II, Hypothyroidism, Obesity /BMI 30+ Hematologic History: Reports: Anemia, B12 Deficiency Immunologic History: Reports: None Oncologic (Cancer) History: Reports: None Dermatologic History: Reports: None Other Dermatologic History: Dry skin, from [place] feeling changes up here, "rashes from time to time" - Infectious Disease History Infectious Disease History: Reports: Chicken Pox - Past Surgical History Head Surgeries/Procedures: Reports: None Cardiovascular Surgical History: Reports: None GI Surgical History: Reports: Cholecystectomy Other GI Surgeries/Procedures: "polyps in stomach" Female Surgical History: Reports: Tubal Ligation Musculoskeletal Surgical History: Reports: Carpal Tunnel, Other (See Below) Other Musculoskeletal Surgeries/Procedures:: bone spur removed from heel Social & Family History - Family History Family Medical History: Noncontributory - Caffeine Use Caffeine Use: Reports: Coffee, Tea ED ROS GENERAL - Review of Systems Review Of Systems: ROS reveals no pertinent complaints other than HPI. ED EXAM, GENERAL - Physical Exam Exam: See Below (see dictation) Course - Vital Signs Last Recorded V/S: Last Vital Signs Temp 97.3 F 09/11/18 17:36 Pulse 91 09/11/18 18:13 Resp 18 09/11/18 18:13 BP 121/80 09/11/18 18:13 Pulse Ox 97 09/11/18 18:13 - Orders/Labs/Meds Orders: Active Orders 24 hr Category Date Time Status RT Aerosol Therapy [RC] ASDIRECTED Care 09/11/18 17:52 Active CULTURE URINE [RM] Stat Lab 09/11/18 18:12 Received Labs: Laboratory Tests 09/11/18 09/11/18 09/11/18 Range/Units 17:44 17:44 18:12 WBC 11.22 H (4.0-11.0) K/uL RBC 3.95 L (4.30-5.90) M/uL Hgb 11.9 L (12.0-16.0) g/dL Hct 35.4 L (36.0-46.0) % MCV 89.6 (80.0-98.0) fL MCH 30.1 (27.0-32.0) pg MCHC 33.6 (31.0-37.0) g/dL RDW Std Deviation 42.2 (28.0-62.0) fl RDW Coeff of Claudio 13 (11.0-15.0) % Plt Count 404 H (150-400) K/uL MPV 9.40 (7.40-12.00) fL Neut % (Auto) 56.8 (48.0-80.0) % Lymph % (Auto) 33.5 (16.0-40.0) % [place] % (Auto) 7.1 (0.0-15.0) % Eos % (Auto) 2.1 (0.0-7.0) % Baso % (Auto) 0.5 (0.0-1.5) % Neut # (Auto) 6.4 H (1.4-5.7) K/uL Lymph # (Auto) 3.8 H (0.6-2.4) K/uL [place] # (Auto) 0.8 (0.0-0.8) K/uL Eos # (Auto) 0.2 (0.0-0.7) K/uL Baso # (Auto) 0.1 (0.0-0.1) K/uL Nucleated RBC % 0.0 /100WBC Nucleated RBCs # 0 K/uL Sodium 141 (136-145) mmol/L Potassium 3.6 (3.5-5.1) mmol/L Chloride 104 (98-107) mmol/L Carbon Dioxide 24.1 (21.0-32.0) mmol/L BUN 28 H (7.0-18.0) mg/dL Creatinine 1.6 H (0.6-1.0) mg/dL Est Cr Clr Drug Dosing 31.22 mL/min Estimated GFR (MDRD) 34.6 ml/min Glucose 125 H (74-106) mg/dL Calcium 9.3 (8.5-10.1) mg/dL Total Bilirubin 0.4 (0.2-1.0) mg/dL AST 17 (15-37) IU/L ALT 33 (14-63) IU/L Alkaline Phosphatase 53 (46-116) U/L Total Protein 8.0 (6.4-8.2) g/dL Albumin 3.8 (3.4-5.0) g/dL Globulin 4.2 H (2.6-4.0) g/dL Albumin/Globulin Ratio 0.9 (0.9-1.6) Urine Color YELLOW Urine Appearance SLT CLOUDY Urine pH 5.5 (5.0-8.0) Ur Specific [place] 1.020 (1.001-1.035) Urine Protein NEGATIVE (NEGATIVE) mg/dL Urine Glucose (UA) NEGATIVE (NEGATIVE) mg/dL Urine Ketones NEGATIVE (NEGATIVE) mg/dL Urine Occult Blood NEGATIVE (NEGATIVE) Urine Nitrite NEGATIVE (NEGATIVE) Urine Bilirubin NEGATIVE (NEGATIVE) Urine Urobilinogen 0.2 (<2.0) EU/dL Ur Leukocyte Esterase TRACE H (NEGATIVE) Urine RBC 1-2 (0-2/HPF) Urine WBC 6-10 (0-5/HPF) Ur Epithelial Cells MODERATE (NONE-FEW) Amorphous Sediment FEW (NEGATIVE) Urine Bacteria 1+ H (NEGATIVE) Urine Mucus FEW (NONE-MOD) Meds: Medications Discontinued Medications Generic Name Dose Route Start Last Admin Trade Name Frandyq PRN Reason Stop Dose Admin Albuterol/Ipratropium 3 ml 09/11/18 17:52 09/11/18 18:02 Duoneb 3.0-0.5 Mg/3 Ml NEB 09/11/18 17:53 3 ml ONETIME ONE Administration Departure - Departure Time of Disposition: 19:47 Disposition: Home, Self-Care 01 Condition: Good Clinical Impression: Bronchitis, UTI (urinary tract infection) - Discharge Information Prescriptions: Albuterol [Ventolin HFA] 1 puff INH Q4H #1 inhaler Albuterol [Ventolin HFA] 1 puff INH Q4H #1 inhaler methylPREDNISolone [Medrol] 4 mg PO ASDIRECTED #1 tab.ds.pk methylPREDNISolone [Medrol] 4 mg PO ASDIRECTED #1 tab.ds.pk Sulfamethoxazole/Trimethoprim [Bactrim Ds Tablet] 1 each PO BID 7 Days #14 tablet Referrals: PCP,Unknown [Primary Care Provider] - Forms: ED Department Discharge Additional Instructions: The following information is given to patients seen in the emergency department who are being discharged to home. This information is to outline your options for follow-up care. We provide all patients seen in our emergency department with a follow-up referral. The need for follow-up, as well as the timing and circumstances, are variable depending upon the specifics of your emergency department visit. If you don't have a primary care physician on staff, we will provide you with a referral. We always advise you to contact your personal physician following an emergency department visit to inform them of the circumstance of the visit and for follow-up with them and/or the need for any referrals to a consulting specialist. The emergency department will also refer you to a specialist when appropriate. This referral assures that you have the opportunity for follow-up care with a specialist. All of these measure are taken in an effort to provide you with optimal care, which includes your follow-up. Under all circumstances we always encourage you to contact your private physician who remains a resource for coordinating your care. When calling for follow-up care, please make the office aware that this follow-up is from your recent emergency room visit. If for any reason you are refused follow-up, please contact the [facility] Emergency Department at and asked to speak to the emergency department charge nurse. [facility] [address] [place], [place] [id number] [place] [address] Take medication as instructed Follow up with primary care provider Return to ED as needed as discussed - My Orders Last 24 Hours: My Active Orders 09/11/18 17:52 RT Aerosol Therapy [RC] ASDIRECTED 09/11/18 18:12 CULTURE URINE [RM] Stat - Assessment/Plan Last 24 Hours: My Active Orders 09/11/18 17:52 RT Aerosol Therapy [RC] ASDIRECTED 09/11/18 18:12 CULTURE URINE [RM] Stat
--- NOTE | 2018-09-11 19:41 | CR ---
HISTORY: Shortness of breath and dyspnea. COMPARISON: 08/25/2018 FINDINGS: A portable erect AP view of the chest was obtained at 1838 hours. There is much deeper inspiration, resulting in clearing of lung markings in the lung bases. The lungs remain clear. No focal or diffuse infiltrates are present. The heart remains normal in size. The mediastinum is normal in appearance. The osseous structures are normal in appearance for the patient`s age. IMPRESSION: Normal portable chest single view. Dictated by Oliverio Yao MD @ Sep 11 2018 7:39PM Signed by Dr. Oliverio Yao @ Sep 11 2018 7:40PM
[2018-09-11 20:14] VITALS: BP 140/95
== END 2018-09-11 20:16 | disposition home or self-care (01) ==
LOC: MW.ED 17:32
DX: J40 Bronchitis, not specified as acute or chronic (principal); N39.0 Urinary tract infection, site not specified; I10 Essential (primary) hypertension; E11.9 Type 2 diabetes mellitus without complications; E78.00 Pure hypercholesterolemia, unspecified; E03.9 Hypothyroidism, unspecified; D64.9 Anemia, unspecified; Z79.4 Long term (current) use of insulin; Z88.0 Allergy status to penicillin; Z91.040 Latex allergy status; Z79.899 Other long term (current) drug therapy
CPT/HCPCS: 36415; 71045; 71045-26; 80053; 81001; 85025; 87086; 99283; 99285-25; J7620-GY

== ENCOUNTER 2018-09-18 13:50 | Emergency (ER) | payer MEDICAID ==
--- NOTE | 2018-09-18 13:57 | EDM.PDOC ---
ED HPI GENERAL MEDICAL PROBLEM - General Chief Complaint: Respiratory Problem Stated Complaint: STATES DIZZINESS AND VOMITTING FOR PAST FEW WKS Time Seen by Provider: 09/18/18 13:53 - History of Present Illness INITIAL COMMENTS - FREE TEXT/NARRATIVE: HISTORY AND PHYSICAL: History of present illness: Patient's 47-year-old white female with history of reactive airway disease was seen multiple times including having been recently hospitalized for chest pain for which workup to date has been nondiagnostic she's also multiple episodes of dizziness including today which is her chief complaint she does have a scheduled reevaluation appointment with her private medical doctor this week. Review of systems: As per history of present illness and below otherwise all systems reviewed and negative. Past medical history: As per history of present illness and as reviewed below otherwise noncontributory. Surgical history: As per history of present illness and as reviewed below otherwise noncontributory. Social history: No reported history of drug or alcohol abuse. Family history: As per history of present illness and as reviewed below otherwise noncontributory. Physical exam: HEENT: Atraumatic, normocephalic, pupils reactive, negative for conjunctival pallor or scleral icterus, mucous membranes moist, throat clear, neck supple, nontender, trachea midline. Lungs: Clear to auscultation, breath sounds equal bilaterally, chest nontender. Heart: S1S2, regular, negative for clicks, rubs, or JVD. Abdomen: Soft, nondistended, nontender. Negative for masses or hepatosplenomegaly. Negative for costovertebral tenderness. Pelvis: Stable nontender. Genitourinary: Deferred. Rectal: Deferred. Extremities: Atraumatic, negative for cords or calf pain. Neurovascular unremarkable. Neuro: Awake, alert, oriented. Cranial nerves II through XII unremarkable. Cerebellum unremarkable. Motor and sensory unremarkable throughout. Exam nonfocal. Diagnostics: EKG CBC CMP Therapeutics: None Impression: #1 dizziness Definitive disposition and diagnosis as appropriate pending reevaluation and review of above. - Related Data Allergies Allergy/AdvReac Type Severity Reaction Status Date / Time Penicillins Allergy Severe eye Verified 09/18/18 13:54 swelling latex Allergy Rash Verified 09/18/18 13:54 Home Meds: Home Meds Losartan/Hydrochlorothiazide [Losartan-HCTZ 100-25 MG] 1 tab PO DAILY 11/21/14 [ History] metFORMIN HCl [Metformin HCl] 500 mg PO BID 01/13/15 [History] Insulin Aspart [NovoLOG] See Protocol SUBCUT TIDAC #1 pen 08/27/18 [Rx] Albuterol [Ventolin HFA] 1 puff INH Q4H #1 inhaler 09/11/18 [Rx] Sulfamethoxazole/Trimethoprim [Bactrim Ds Tablet] 1 each PO BID 7 Days #14 tablet 09/11/18 [Rx] Insulin Glarg,Human.Rec.Analog [Lantus Solostar] 15 - 20 units SUBCUT BEDTIME [History] Rosuvastatin Calcium 40 mg PO DAILY 09/18/18 [History] Past Medical History HEENT History: Reports: None Cardiovascular History: Reports: High Cholesterol, Hypertension, [place] Other Cardiovascular History: was told she had a "mild" heart attack in 2007- no stents or heart damage Respiratory History: Reports: None Other Respiratory History: 20 yr history of smoking Gastrointestinal History: Reports: None Other Genitourinary History: "potassium in urine" 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 History: tubal ligation Musculoskeletal History: Neurological History: Reports: Migraines, Other (See Below) Other Neuro History: hx of motion sickness Psychiatric History: Reports: None Endocrine/Metabolic History: Reports: Diabetes, Type II, Hypothyroidism, Obesity /BMI 30+ Hematologic History: Reports: Anemia, B12 Deficiency Immunologic History: Reports: None Oncologic (Cancer) History: Reports: None Dermatologic History: Reports: None Other Dermatologic History: Dry skin, from [place] feeling changes up here, "rashes from time to time" - Infectious Disease History Infectious Disease History: Reports: Chicken Pox - Past Surgical History Head Surgeries/Procedures: Reports: None Cardiovascular Surgical History: Reports: None GI Surgical History: Reports: Cholecystectomy Other GI Surgeries/Procedures: "polyps in stomach" Female Surgical History: Reports: Tubal Ligation Musculoskeletal Surgical History: Reports: Carpal Tunnel, Other (See Below) Other Musculoskeletal Surgeries/Procedures:: bone spur removed from heel Social & Family History - Family History Family Medical History: Noncontributory - Caffeine Use Caffeine Use: Reports: Coffee, Tea ED ROS GENERAL - Review of Systems Review Of Systems: ROS reveals no pertinent complaints other than HPI. ED EXAM, GENERAL - Physical Exam Exam: See Below (See dictation) Course - Vital Signs Last Recorded V/S: Last Vital Signs Temp 35.8 C 09/18/18 13:55 Pulse 87 09/18/18 13:55 Resp 18 09/18/18 13:55 BP 113/70 09/18/18 13:55 Pulse Ox 98 09/18/18 13:55 - Orders/Labs/Meds Orders: Active Orders 24 hr Category Date Time Status EKG Documentation Completion [RC] STAT Care 09/18/18 13:55 Active Head wo Cont [CT] Stat Exams 09/18/18 13:58 Taken Labs: Laboratory Tests 09/18/18 09/18/18 Range/Units 14:06 14:06 WBC 10.61 (4.0-11.0) K/uL RBC 4.06 L (4.30-5.90) M/uL Hgb 12.4 (12.0-16.0) g/dL Hct 37.0 (36.0-46.0) % MCV 91.1 (80.0-98.0) fL MCH 30.5 (27.0-32.0) pg MCHC 33.5 (31.0-37.0) g/dL RDW Std Deviation 43.7 (28.0-62.0) fl RDW Coeff of Claudio 13 (11.0-15.0) % Plt Count 319 (150-400) K/uL MPV 9.90 (7.40-12.00) fL Neut % (Auto) 55.6 (48.0-80.0) % Lymph % (Auto) 34.6 (16.0-40.0) % [place] % (Auto) 7.4 (0.0-15.0) % Eos % (Auto) 1.9 (0.0-7.0) % Baso % (Auto) 0.5 (0.0-1.5) % Neut # (Auto) 5.9 H (1.4-5.7) K/uL Lymph # (Auto) 3.7 H (0.6-2.4) K/uL [place] # (Auto) 0.8 (0.0-0.8) K/uL Eos # (Auto) 0.2 (0.0-0.7) K/uL Baso # (Auto) 0.1 (0.0-0.1) K/uL Nucleated RBC % 0.0 /100WBC Nucleated RBCs # 0 K/uL Sodium 136 (136-145) mmol/L Potassium 3.5 (3.5-5.1) mmol/L Chloride 101 (98-107) mmol/L Carbon Dioxide 23.6 (21.0-32.0) mmol/L BUN 47 H (7.0-18.0) mg/dL Creatinine 1.9 H (0.6-1.0) mg/dL Est Cr Clr Drug Dosing 31.61 mL/min Estimated GFR (MDRD) 28.3 ml/min Glucose 185 H (74-106) mg/dL Calcium 8.9 (8.5-10.1) mg/dL Total Bilirubin 0.4 (0.2-1.0) mg/dL AST 14 L (15-37) IU/L ALT 27 (14-63) IU/L Alkaline Phosphatase 45 L (46-116) U/L Total Protein 7.6 (6.4-8.2) g/dL Albumin 3.6 (3.4-5.0) g/dL Globulin 4.0 (2.6-4.0) g/dL Albumin/Globulin Ratio 0.9 (0.9-1.6) Departure - Departure Time of Disposition: 14:41 Disposition: Home, Self-Care 01 Condition: Good Clinical Impression: Encounter for medical screening examination, Dizziness - Discharge Information Referrals: PCP,Unknown [Primary Care Provider] - Forms: ED Department Discharge Additional Instructions: The following information is given to patients seen in the emergency department who are being discharged to home. This information is to outline your options for follow-up care. We provide all patients seen in our emergency department with a follow-up referral. The need for follow-up, as well as the timing and circumstances, are variable depending upon the specifics of your emergency department visit. If you don't have a primary care physician on staff, we will provide you with a referral. We always advise you to contact your personal physician following an emergency department visit to inform them of the circumstance of the visit and for follow-up with them and/or the need for any referrals to a consulting specialist. The emergency department will also refer you to a specialist when appropriate. This referral assures that you have the opportunity for followup care with a specialist. All of these measure are taken in an effort to provide you with optimal care, which includes your followup. Under all circumstances we always encourage you to contact your private physician who remains a resource for coordinating your care. When calling for followup care, please make the office aware that this follow-up is from your recent emergency room visit. If for any reason you are refused follow-up, please contact the [facility] emergency department at and asked to speak to the emergency department charge nurse. Follow-up with schedule appointment as discussed return as needed as discussed - My Orders Last 24 Hours: My Active Orders 09/18/18 13:55 EKG Documentation Completion [RC] STAT 09/18/18 13:58 Head wo Cont [CT] Stat - Assessment/Plan Last 24 Hours: My Active Orders 09/18/18 13:55 EKG Documentation Completion [RC] STAT 09/18/18 13:58 Head wo Cont [CT] Stat
[2018-09-18 14:34] LABS: CARBON DIOXIDE,CO2 23.6 mmol/L (21.0-32.0); POTASSIUM,K 3.5 mmol/L (3.5-5.1)
--- NOTE | 2018-09-18 15:02 | CT ---
EXAMINATION: Non contrast CT head. Coronal and sagittal reformats. HISTORY: Pain FINDINGS: No evidence of intra or extra axial hemorrhage, mass, midline shift, hydrocephalus or edema. No hypoattenuation changes in the major vascular territories to suggest acute infarct. No abnormal intracranial calcifications are detected. No evidence of substantial vascular calcifications. Paranasal sinuses and mastoid air cells are well aerated without substantial findings. Pituitary fossa appears unremarkable. Orbits and globes are symmetric. Calvarium is intact. No evidence of skull fracture. IMPRESSION: No acute intracranial findings.
[2018-09-18 16:19] VITALS: BP 113/52; PULSE 86
== END 2018-09-18 14:55 | disposition home or self-care (01) ==
LOC: MW.ED 13:50
DX: R42 Dizziness and giddiness (principal); I10 Essential (primary) hypertension; E11.9 Type 2 diabetes mellitus without complications; J45.909 Unspecified asthma, uncomplicated; I25.2 Old myocardial infarction; E66.9 Obesity, unspecified; Z68.30 Body mass index [BMI] 30.0-30.9, adult; Z90.49 Acquired absence of other specified parts of digestive tract; Z79.4 Long term (current) use of insulin; Z88.0 Allergy status to penicillin; Z86.2 Personal history of diseases of the blood and blood-forming organs and certain disorders involving the immune mechanism; Z98.51 Tubal ligation status; Z91.040 Latex allergy status; Z87.891 Personal history of nicotine dependence
CPT/HCPCS: 36415; 70450; 70450-26; 80053; 85025; 93005; 99282; 99284-25

== ENCOUNTER 2019-04-29 04:12 | Emergency (ER) | payer MEDICAID ==
--- NOTE | 2019-04-29 04:25 | EDM.PDOC ---
ED HPI GENERAL MEDICAL PROBLEM - General Chief Complaint: Respiratory Problem Stated Complaint: SOB Time Seen by Provider: 04/29/19 04:22 Source of Information: Reports: Patient - History of Present Illness INITIAL COMMENTS - FREE TEXT/NARRATIVE: The patient is a 48-year-old female diabetic who presents to the ER for feeling short of breath. She is unclear how to describe this exactly. She just recently got off of a [employer] for a respiratory infection and states that she seemed to be doing okay and then she was lying down on the couch and she started feeling short of breath and feeling like there might be phlegm caught in her throat but she could not take a deep breath and could not cough or get it out. She just states that she feels like there is a heavy pressure over her chest like someone is sitting on her chest and there is a board across her chest. She denies any fevers but she feels achy, she feels like she is getting over her illness but she is not sure if she is coming down with something new. Exertion does not make her any worse. No vomiting or diarrhea, no abdominal pain, no unusual headaches, no sinus congestion, no other acute complaints at this time. Symptoms started approximately 11 PM last night. - Related Data Allergies Allergy/AdvReac Type Severity Reaction Status Date / Time Penicillins Allergy Severe eye Verified 04/29/19 04:17 swelling latex Allergy Rash Verified 04/29/19 04:17 Home Meds: Home Meds Losartan/Hydrochlorothiazide [Losartan-HCTZ 100-25 MG] 1 tab PO DAILY 11/21/14 [ History] metFORMIN HCl [Metformin HCl] 500 mg PO BID 01/13/15 [History] Albuterol [Ventolin HFA] 1 puff INH Q4H #1 inhaler 09/11/18 [Rx] Rosuvastatin Calcium 40 mg PO DAILY 09/18/18 [History] Past Medical History HEENT History: Reports: None Cardiovascular History: Reports: High Cholesterol, Hypertension, NM Other Cardiovascular History: was told she had a "mild" heart attack in 2007- no stents or heart damage Respiratory History: Reports: None Other Respiratory History: 20 yr history of smoking Gastrointestinal History: Reports: None Other Genitourinary History: "potassium in urine" 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 Other SILICA FILTER OPERATOR History: tubal ligation Musculoskeletal History: Neurological History: Reports: Migraines, Other (See Below) Other Neuro History: hx of motion sickness Psychiatric History: Reports: None Endocrine/Metabolic History: Reports: Diabetes, Type II, Hypothyroidism, Obesity /BMI 30+ Hematologic History: Reports: Anemia, B12 Deficiency Immunologic History: Reports: None Oncologic (Cancer) History: Reports: None Dermatologic History: Reports: None Other Dermatologic History: Dry skin, from [place] feeling changes up here, "rashes from time to time" - Infectious Disease History Infectious Disease History: Reports: Chicken Pox - Past Surgical History Head Surgeries/Procedures: Reports: None Cardiovascular Surgical History: Reports: None GI Surgical History: Reports: Cholecystectomy Other GI Surgeries/Procedures: "polyps in stomach" Female Surgical History: Reports: Tubal Ligation Musculoskeletal Surgical History: Reports: Carpal Tunnel, Other (See Below) Other Musculoskeletal Surgeries/Procedures:: bone spur removed from heel Social & Family History - Family History Family Medical History: Noncontributory - Caffeine Use Caffeine Use: Reports: Coffee, Tea ED ROS GENERAL - Review of Systems Review Of Systems: See Below (Positive for chest heaviness, positive for shortness of breath, negative for fevers, positive for some chills, all other Positives and pertinent negatives as per HPI. All other pertinent systems were reviewed and are negative) ED EXAM, GENERAL - Physical Exam Exam: See Below Free Text/Narrative:: Constitutional: No acute distress, Non-toxic appearance, appears anxious and looks like she does not feel well HEENT.: Normocephalic, Atraumatic, PERRL, EOMI, External ears are atraumatic, nares are patent without epistaxis Neck: Normal range of motion, Trachea Midline, No stridor Respiratory.: No respiratory distress, No tachypnea, Lungs Clear to Auscultation bilaterally without wheezes, rales, or rhonchi Cardiovascular.: Regular rate and Rhythm without murmurs, rubs, or gallops, good peripheral perfusion GI: Abdomen soft and non tender, obese Genital Urinary: Deferred Musculoskeletal: Good range of motion. All 4 extremities present and atraumatic , no edema Back: Full Range of Motion Skin: Warm, Dry, Color is ethnicity appropriate, No acute rash. Lymphatic: No lymphadenopathy noted Neurological: Alert, Awake and oriented x 3, No focal deficits noted appreciate , GCS 15 Psych: Not psychotic, appears mildly anxious Course - Vital Signs Text/Narrative:: When the patient first arrived it sounded like she was talking about some type of viral syndrome but then the patient was changing the way she was describing her symptomology and now she is saying she is not sure she feels like she is getting sick or not and she keeps complaining of this central chest heaviness without any associated coughing, other viral symptomology, etc. As such I instituted a cardiac work-up. ECG The ECG was read and interpreted by me. There are p waves before every QRS with a ventricular rate of 90. The LA, QRS, and QT intervals are all normal. [place] is normal. ST segments are baseline and the T wave morphology is normal. Final interpretation is a normal Sinus rhythm and a normal ECG. Chest x-ray was reviewed and interpreted by me -there are no pulmonary infiltrates, pleural effusions, pneumothorax, thoracic masses or any acute pathology. Given the entire clinical scenario, this patient is at very low risk for myocarditis, endocarditis, pericardial effusion, pneumonia, pulmonary infarction , pulmonary embolism ( PERC 0 ), and although it is completely unclear where her symptoms are coming from (this could be postviral ) - she has a heart score of 4 (obesity, diabetes, cholesterol and HTN ) -and typically this would place the patient in the moderate risk cardiac category. However the chest heaviness has been continuous for at least 5 hours with no ECG changes, no troponin elevation, no waxing and waning symptoms consistent with acute coronary syndrome , and no exertional component. Thus, given everything discussed above, I talked to the patient in detail and she is comfortable with being discharged home and I am okay with this as long as the patient gets close outpatient follow -up and she states that she will. Last Recorded V/S: Last Vital Signs Temp 36.3 C 04/29/19 04:15 Pulse 98 04/29/19 04:15 Resp 18 04/29/19 04:15 BP 171/93 H 04/29/19 04:15 Pulse Ox 98 04/29/19 04:15 - Orders/Labs/Meds Orders: Active Orders 24 hr Category Date Time Status EKG Documentation Completion [RC] STAT Care 04/29/19 04:22 Active CXR [Chest 1V Frontal] [CR] Stat Exams 04/29/19 05:12 Ordered Labs: Laboratory Tests 04/29/19 04/29/19 Range/Units 04:33 04:33 WBC 8.93 (4.0-11.0) K/uL RBC 4.00 L (4.30-5.90) M/uL Hgb 12.1 (12.0-16.0) g/dL Hct 35.9 L (36.0-46.0) % MCV 89.8 (80.0-98.0) fL MCH 30.3 (27.0-32.0) pg MCHC 33.7 (31.0-37.0) g/dL RDW Std Deviation 42.8 (28.0-62.0) fl RDW Coeff of Claudio 13 (11.0-15.0) % Plt Count 231 (150-400) K/uL MPV 10.20 (7.40-12.00) fL Neut % (Auto) 52.4 (48.0-80.0) % Lymph % (Auto) 37.8 (16.0-40.0) % Pepin % (Auto) 7.4 (0.0-15.0) % Eos % (Auto) 2.0 (0.0-7.0) % Baso % (Auto) 0.4 (0.0-1.5) % Neut # (Auto) 4.7 (1.4-5.7) K/uL Lymph # (Auto) 3.4 H (0.6-2.4) K/uL Pepin # (Auto) 0.7 (0.0-0.8) K/uL Eos # (Auto) 0.2 (0.0-0.7) K/uL Baso # (Auto) 0.0 (0.0-0.1) K/uL Nucleated RBC % 0.0 /100WBC Nucleated RBCs # 0 K/uL Sodium 137 (136-145) mmol/L Potassium 3.9 (3.5-5.1) mmol/L Chloride 99 (98-107) mmol/L Carbon Dioxide 26.7 (21.0-32.0) mmol/L BUN 22 H (7.0-18.0) mg/dL Creatinine 1.3 H (0.6-1.0) mg/dL Est Cr Clr Drug Dosing 45.70 mL/min Estimated GFR (MDRD) 43.7 ml/min Glucose 433 H (74-106) mg/dL Calcium 9.0 (8.5-10.1) mg/dL Total Bilirubin 0.4 (0.2-1.0) mg/dL AST 13 L (15-37) IU/L ALT 28 (14-63) IU/L Alkaline Phosphatase 56 (46-116) U/L Troponin I < 0.050 (0.000-0.056) ng/mL Total Protein 7.0 (6.4-8.2) g/dL Albumin 3.5 (3.4-5.0) g/dL Globulin 3.5 (2.6-4.0) g/dL Albumin/Globulin Ratio 1.0 (0.9-1.6) Departure - Departure Time of Disposition: 05:24 Disposition: Home, Self-Care 01 Condition: Good Clinical Impression: Chest pain - Discharge Information *PRESCRIPTION DRUG MONITORING PROGRAM REVIEWED*: Not Applicable *COPY OF PRESCRIPTION DRUG MONITORING REPORT IN PATIENT JUAN RAMON: Not Applicable Instructions: Nonspecific Chest Pain, [id number] Forms: ED Department Discharge Sepsis Event Note - Evaluation Sepsis Screening Result: No Definite Risk - Focused Exam Vital Signs: Vital Signs Temp Pulse Resp BP Pulse Ox 04/29/19 04:15 36.3 C 98 18 171/93 H 98 Date Exam was Performed: 04/29/19 Time Exam was Performed: 05:12 - My Orders Last 24 Hours: My Active Orders 04/29/19 04:22 EKG Documentation Completion [RC] STAT 04/29/19 05:12 CXR [Chest 1V Frontal] [CR] Stat - Assessment/Plan Last 24 Hours: My Active Orders 04/29/19 04:22 EKG Documentation Completion [RC] STAT 04/29/19 05:12 CXR [Chest 1V Frontal] [CR] Stat
[2019-04-29 04:59] LABS: BLOOD UREA NITROGEN,BUN 22 mg/dL (7.0-18.0); CARBON DIOXIDE,CO2 26.7 mmol/L (21.0-32.0); CHLORIDE,CL 99 mmol/L (98-107); GLUCOSE RANDOM 433 mg/dL (74-106); POTASSIUM,K 3.9 mmol/L (3.5-5.1); SODIUM,NA 137 mmol/L (136-145)
[2019-04-29 05:41] VITALS: BP 140/79; PULSE 90
--- NOTE | 2019-04-29 06:02 | CR ---
Indication: Shortness of breath Technique: Chest 1 view Comparison: September 11, 2018 Findings/Impression: Cardiovascular and mediastinum: Heart size and vasculature are normal in caliber and appearance. Mediastinum is within normal limits. Lungs and pleural space: Lungs are clear. No sign of infiltrate or mass. No sign of pleural effusion. No pneumothorax. Bones and soft tissues: No significant findings. Dictated by Tatianna Brody MD @ Apr 29 2019 6:00AM Signed by Dr. Tatianna Brody @ Apr 29 2019 6:01AM
== END 2019-04-29 05:40 | disposition home or self-care (01) ==
LOC: MW.ED 04:12
DX: R07.89 Other chest pain (principal); R06.02 Shortness of breath; E78.00 Pure hypercholesterolemia, unspecified; I10 Essential (primary) hypertension; I25.2 Old myocardial infarction; E11.9 Type 2 diabetes mellitus without complications; E03.9 Hypothyroidism, unspecified; E66.9 Obesity, unspecified; Z88.0 Allergy status to penicillin; Z91.040 Latex allergy status; Z79.899 Other long term (current) drug therapy; Z79.84 Long term (current) use of oral hypoglycemic drugs; Z68.41 Body mass index [BMI] 40.0-44.9, adult
CPT/HCPCS: 36415; 71045; 71045-26; 80053; 84484; 85025; 93005; 99285-25